=== PATIENT | male | born 1940 | race Caucasian/White ===

== ENCOUNTER → 2017-09-16 | Outpatient (CLI) | payer MEDICARE ==
[~2017-09-16] MED LIST: FLUT16SP NAS
== END | disposition home or self-care (01) ==
LOC: CFH 09:33
PROVIDERS: ATTEND Internal Medicine Critical Care Medicine
DX: R91.1 Solitary pulmonary nodule (principal); J44.9 Chronic obstructive pulmonary disease, unspecified; N28.9 Disorder of kidney and ureter, unspecified
CPT/HCPCS: 71250

== ENCOUNTER 2017-09-27 06:56 | Day surgery (SDC) | payer MEDICARE ==
[~2017-09-27] VITALS: Ht 208.3 cm; Wt 90.6 kg
[2017-09-27] MEDS ORDERED: SODIUM CHLORIDE 0.9% 1,000 ML IV SCH (07:34)
[2017-09-27 07:35] VITALS: BP 144/75
[2017-09-27 07:55] LABS: INTERNATIONAL NORMALIZED RATIO 1.1 (0.93-1.1); PROTHROMBIN TIME 11.4 Seconds (9.6-11.5)
[2017-09-27] MEDS ORDERED: FENTANYL PF 100 MCG/2ML ONE (08:01)
[2017-09-27] MEDS ORDERED: NALOXONE 1 MG/ML, 2ML ONE (08:02)
[2017-09-27] MEDS ORDERED: MIDAZOLAM 1 MG/ML, 2ML ONE (08:02)
[2017-09-27] MEDS ORDERED: FLUMAZENIL 0.1 MG/1 ML, 5ML ONE (08:02)
[2017-09-28] MEDS ORDERED: TRIA1TAB3 PO (09:46)
[2017-09-28] MEDS ORDERED: TIOT4MIS3 IN (09:46)
[2017-09-28] MEDS ORDERED: VIT1TABL47 PO (09:46)
[2017-09-28] MEDS ORDERED: LEVO100T5 PO (09:46)
[2017-09-28] MEDS ORDERED: WARF5TAB PO (09:46)
[2017-09-28] MEDS ORDERED: UMEC1DIS INH (09:46)
[2017-09-28] MEDS ORDERED: PRAV40TA2 PO (09:46)
== END 2017-09-27 12:05 ==
LOC: OUT 06:56
PROVIDERS: ATTEND Internal Medicine Critical Care Medicine
DX: C34.90 Malignant neoplasm of unspecified part of unspecified bronchus or lung (principal); Z79.82 Long term (current) use of aspirin
CPT/HCPCS: 32405; 36415; 71045; 77012; 85610; 88305; 99156; 99157; J2250; J3010; J7030; J2310

== ENCOUNTER 2017-09-28 09:16 | Emergency (ER) | payer MEDICARE ==
[~2017-09-28] VITALS: Ht 182.9 cm; Wt 91.4 kg
[2017-09-28] MEDS ORDERED: UMEC1DIS INH (09:46)
[2017-09-28] MEDS ORDERED: TIOT4MIS3 IN (09:46)
[2017-09-28] MEDS ORDERED: PRAV40TA2 PO (09:46)
[2017-09-28] MEDS ORDERED: LEVO100T5 PO (09:46)
[2017-09-28] MEDS ORDERED: WARF5TAB PO (09:46)
[2017-09-28] MEDS ORDERED: VIT1TABL47 PO (09:46)
[2017-09-28] MEDS ORDERED: TRIA1TAB3 PO (09:46)
[2017-09-28] MEDS ORDERED: LIDOCAINE 1%, 20ML ONE (10:05)
[2017-09-28] MEDS ORDERED: FENTANYL PF 100 MCG/2ML ONE (10:21)
[2017-09-28] MEDS ORDERED: NALOXONE 1 MG/ML, 2ML ONE (10:21)
[2017-09-28 10:30] LABS: BASOPHILS # (AUTO) 0.02 x10^3/uL (0-0.1); BASOPHILS % (AUTO) 0 % (0-1); EOSINOPHILS # (AUTO) 0.16 x10^3/uL (0-0.4); EOSINOPHILS % (AUTO) 2 % (1-7); LYMPHOCYTES # (AUTO) 0.84 x10^3/uL (1-3.4); LYMPHOCYTES % (AUTO) 13 % (22-44); MD NO; MEAN CORPUSCULAR HEMOGLOBIN 33.7 pg (27.5-34.5); MEAN CORPUSCULAR HGB CONC 33.6 g/dL (33.2-36.2); MEAN CORPUSCULAR VOLUME 100.1 fL (81-97); MEAN PLATELET VOLUME 8.1 fL (7.4-10.4); MONOCYTES # (AUTO) 0.49 x10^3/uL (0.2-0.8); MONOCYTES % (AUTO) 7 % (2-9); NEUTROPHILS # (AUTO) 5.11 x10^3/uL (1.8-6.8); NEUTROPHILS % (AUTO) 77 % (42-75); PLATELET COUNT 120 x10^3/uL (130-400); RED BLOOD COUNT 3.55 x10^6/uL (4.38-5.82); RED CELL DISTRIBUTION WIDTH 14.2 % (9.4-14.8)
[2017-09-28 10:41] LABS: ANION GAP 4 mmol/L (5-15); CALCIUM 8.6 mg/dL (8.5-10.1); CHLORIDE 105 mmol/L (98-107); CREATININE 1.22 mg/dL (0.7-1.3)
[2017-09-28] MEDS ORDERED: HYDROmorphone 2 MG/ML, 1ML ONE (12:00)
[2017-09-28] MEDS ORDERED: HYDROmorphone 1 MG/ML, 1ML IV ONE (12:00)
[2017-09-28 13:35] VITALS: BP 114/55
== END 2017-09-28 13:48 | disposition home or self-care (01) ==
LOC: ED 10:17
DX: J95.811 Postprocedural pneumothorax (principal); J43.9 Emphysema, unspecified; Z87.891 Personal history of nicotine dependence; Z98.890 Other specified postprocedural states; Z99.81 Dependence on supplemental oxygen; Z85.51 Personal history of malignant neoplasm of bladder
CPT/HCPCS: 32557; 36415; 71045; 80048; 85025; 93005; 96374; 99156; 99157; 99285; C1729; C1769; J1170; J3010; J3490; 32551; J2310

== ENCOUNTER → 2017-10-01 | Outpatient (CLI) | payer MEDICARE ==
[~2017-10-01] MED LIST changes: +LEVO100T5 PO; +PRAV40TA2 PO; +TIOT4MIS3 IN; +TRIA1TAB3 PO; +UMEC1DIS INH; +VIT1TABL47 PO; +WARF5TAB PO
== END ==
LOC: RAD 13:58
PROVIDERS: ATTEND Radiology Diagnostic Radiology
DX: Z46.82 Encounter for fitting and adjustment of non-vascular catheter (principal); J98.11 Atelectasis; J98.6 Disorders of diaphragm
CPT/HCPCS: 71045

== ENCOUNTER → 2017-10-06 | Outpatient (CLI) | payer MEDICARE ==
[~2017-10-06] MED LIST changes: +GADOBUTROL 7.5 MMOL/7.5 ML VIAL ONE
== END | disposition home or self-care (01) ==
LOC: CFH 13:27
PROVIDERS: ATTEND Internal Medicine Critical Care Medicine
DX: C34.90 Malignant neoplasm of unspecified part of unspecified bronchus or lung (principal)
CPT/HCPCS: 70553; A9585

== ENCOUNTER → 2017-10-10 | Outpatient (CLI) | payer MEDICARE ==
[~2017-10-10] MED LIST changes: -GADOBUTROL 7.5 MMOL/7.5 ML VIAL ONE
== END | disposition home or self-care (01) ==
LOC: ROC 08:40
PROVIDERS: ATTEND Radiology Radiation Oncology
DX: C34.90 Malignant neoplasm of unspecified part of unspecified bronchus or lung (principal)
CPT/HCPCS: G0463

== ENCOUNTER → 2017-10-12 | Outpatient (CLI) | payer MEDICARE | END | disposition home or self-care (01) | LOC: PETCFH 13:27 | PROVIDERS: ATTEND Radiology Radiation Oncology | DX: C34.91 Malignant neoplasm of unspecified part of right bronchus or lung (principal); R91.1 Solitary pulmonary nodule | CPT/HCPCS: 78815; A9552 ==

== ENCOUNTER 2017-10-21 10:06 | Day surgery (SDC) | payer MEDICARE ==
[~2017-10-21] VITALS: Ht 182.9 cm; Wt 90.4 kg
[2017-10-21 10:58] VITALS: BP 164/75
[2017-10-21] MEDS ORDERED: SODIUM CHLORIDE 0.9% 1,000 ML IV SCH (11:01)
[2017-10-21 11:15] LABS: INTERNATIONAL NORMALIZED RATIO 1.16 (0.93-1.1); PROTHROMBIN TIME 11.9 Seconds (9.6-11.5)
[2017-10-21] MEDS ORDERED: MIDAZOLAM 1 MG/ML, 2ML ONE ×2 (11:41)
[2017-10-21] MEDS ORDERED: NALOXONE 1 MG/ML, 2ML ONE (11:42)
[2017-10-21] MEDS ORDERED: FENTANYL PF 100 MCG/2ML ONE (11:42)
[2017-10-21] MEDS ORDERED: FLUMAZENIL 0.1 MG/1 ML, 5ML ONE (11:42)
[2017-10-21] MEDS ORDERED: LIDOCAINE 1%, 20ML ONE (11:59)
== END 2017-10-21 14:35 ==
LOC: OUT 10:06 → EDSTATUS 11:30 → OUT 14:35
PROVIDERS: ATTEND Radiology Radiation Oncology
DX: J98.4 Other disorders of lung (principal); I48.91 Unspecified atrial fibrillation; N40.0 Benign prostatic hyperplasia without lower urinary tract symptoms; J44.9 Chronic obstructive pulmonary disease, unspecified; I10 Essential (primary) hypertension; E03.9 Hypothyroidism, unspecified; E89.0 Postprocedural hypothyroidism; Z86.718 Personal history of other venous thrombosis and embolism; Z40.09 Encounter for prophylactic removal of other organ; Z98.890 Other specified postprocedural states
CPT/HCPCS: 32553; 36415; 71045; 77014; 85610; 99156; 99157; A4648; J2250; J3010; J3490; J7030; J2310

== ENCOUNTER 2017-11-04 06:47 | Day surgery (SDC) | payer MEDICARE ==
[~2017-11-04] VITALS: Ht 182.9 cm; Wt 88.4 kg
[2017-11-04] MEDS ORDERED: CEFAZOLIN PMX 1GM/50ML 50 ML ONE (07:32)
[2017-11-04 08:03] VITALS: BP 131/78
[2017-11-04 08:11] LABS: INTERNATIONAL NORMALIZED RATIO 1.09 (0.93-1.1); PROTHROMBIN TIME 11.3 Seconds (9.6-11.5)
[2017-11-04] MEDS ORDERED: FENTANYL PF 100 MCG/2ML ONE ×2 (08:26)
[2017-11-04] MEDS ORDERED: LIDOCAINE 1%, 20ML ONE (08:26)
[2017-11-04] MEDS ORDERED: MIDAZOLAM 1 MG/ML, 5ML ONE (08:26)
[2017-11-04] MEDS ORDERED: NALOXONE 1 MG/ML, 2ML ONE (08:27)
[2017-11-04] MEDS ORDERED: FLUMAZENIL 0.1 MG/1 ML, 5ML ONE (08:27)
[2017-11-04] MEDS ORDERED: CEFAZOLIN PMX 1GM/50ML 50 ML IV ONE (09:00)
== END 2017-11-04 11:20 ==
LOC: OUT 06:47
PROVIDERS: ATTEND Internal Medicine Hematology & Oncology
DX: Z45.2 Encounter for adjustment and management of vascular access device (principal); C34.90 Malignant neoplasm of unspecified part of unspecified bronchus or lung; I48.91 Unspecified atrial fibrillation; N40.0 Benign prostatic hyperplasia without lower urinary tract symptoms; J44.9 Chronic obstructive pulmonary disease, unspecified; I10 Essential (primary) hypertension; E03.9 Hypothyroidism, unspecified; E78.5 Hyperlipidemia, unspecified; E89.0 Postprocedural hypothyroidism; Z98.890 Other specified postprocedural states
CPT/HCPCS: 36415; 36561; 76937; 77001; 85610; 99156; 99157; C1788; J1642; J2250; J3010; J3490; J2310

== ENCOUNTER → 2018-02-20 | Outpatient (CLI) | payer MEDICARE | END | disposition home or self-care (01) | LOC: ROC 08:29 | PROVIDERS: ATTEND Radiology Radiation Oncology | DX: Z08 Encounter for follow-up examination after completed treatment for malignant neoplasm (principal); C34.11 Malignant neoplasm of upper lobe, right bronchus or lung; R91.1 Solitary pulmonary nodule | CPT/HCPCS: G0463 ==

== ENCOUNTER → 2018-04-18 | Outpatient (CLI) | payer MEDICARE | END | disposition home or self-care (01) | LOC: RAD 09:11 | PROVIDERS: ATTEND Internal Medicine Hematology & Oncology | DX: Z02.9 Encounter for administrative examinations, unspecified (principal) ==

== ENCOUNTER → 2018-06-05 | Outpatient (CLI) | payer MEDICARE | END | disposition home or self-care (01) | LOC: ROC 09:17 | PROVIDERS: ATTEND Radiology Radiation Oncology | DX: C34.11 Malignant neoplasm of upper lobe, right bronchus or lung (principal); R91.1 Solitary pulmonary nodule | CPT/HCPCS: G0463 ==

== ENCOUNTER 2018-06-08 05:50 | Day surgery (SDC) | payer MEDICARE ==
[~2018-06-08] VITALS: Ht 182.9 cm; Wt 88.6 kg
[2018-06-08] MEDS ORDERED: LIDOCAINE-MPF 2% ,5ML ONE (07:07)
[2018-06-08 07:09] VITALS: BP 137/80
[2018-06-08 07:28] LABS: INTERNATIONAL NORMALIZED RATIO 1.13 (0.93-1.1); PROTHROMBIN TIME 11.6 Seconds (9.6-11.5)
[2018-06-08] MEDS ORDERED: NALOXONE 1 MG/ML, 2ML ONE (07:39)
[2018-06-08] MEDS ORDERED: FLUMAZENIL 0.1 MG/1 ML, 5ML ONE (07:39)
[2018-06-08] MEDS ORDERED: FENTANYL PF 100 MCG/2ML ONE (07:39)
[2018-06-08] MEDS ORDERED: MIDAZOLAM 1 MG/ML, 5ML ONE (07:39)
== END 2018-06-08 10:05 | disposition home or self-care (01) ==
LOC: OUT 05:50
PROVIDERS: ATTEND Internal Medicine Hematology & Oncology
DX: Z45.2 Encounter for adjustment and management of vascular access device (principal); C34.11 Malignant neoplasm of upper lobe, right bronchus or lung; J44.9 Chronic obstructive pulmonary disease, unspecified; I10 Essential (primary) hypertension; D70.1 Agranulocytosis secondary to cancer chemotherapy; D64.9 Anemia, unspecified; I48.91 Unspecified atrial fibrillation; N40.0 Benign prostatic hyperplasia without lower urinary tract symptoms; E03.9 Hypothyroidism, unspecified; E78.5 Hyperlipidemia, unspecified; Z72.89 Other problems related to lifestyle; Z79.01 Long term (current) use of anticoagulants; Z90.5 Acquired absence of kidney; Z86.718 Personal history of other venous thrombosis and embolism; Z98.890 Other specified postprocedural states; Z87.891 Personal history of nicotine dependence
CPT/HCPCS: 36415; 36590; 77001; 85610; 99156; 99157; J2250; J3010; J3490; J2310

== ENCOUNTER → 2018-12-25 | Outpatient (CLI) | payer MEDICARE | END | disposition home or self-care (01) | LOC: ROC 09:26 | PROVIDERS: ATTEND Radiology Radiation Oncology | DX: C34.11 Malignant neoplasm of upper lobe, right bronchus or lung (principal); G62.9 Polyneuropathy, unspecified; R91.1 Solitary pulmonary nodule; J98.11 Atelectasis; Z79.899 Other long term (current) drug therapy; Z92.21 Personal history of antineoplastic chemotherapy | CPT/HCPCS: G0463 ==

== ENCOUNTER 2019-06-25 08:08 | Outpatient (CLI) | payer MEDICARE ==
[~2019-06-25 08:08] MED LIST changes: -FLUT16SP NAS; +FLUT16SP24 NAS
== END 2019-06-25 23:59 | disposition home or self-care (01) ==
LOC: ROC 08:08
PROVIDERS: ATTEND Radiology Radiation Oncology
DX: Z08 Encounter for follow-up examination after completed treatment for malignant neoplasm (principal); Z85.118 Personal history of other malignant neoplasm of bronchus and lung
CPT/HCPCS: G0463

== ENCOUNTER → 2020-01-08 | Outpatient (CLI) | payer MEDICARE ==
[~2020-01-08] MED LIST changes: +OMNIPAQUE 350 MG/ML, 100ML BOTTLE ONE
[2020-01-08 16:03] LABS: ALANINE AMINOTRANSFERASE 18 U/L (12-78); ALBUMIN 3.7 g/dL (3.4-5.0); ANION GAP 4 mmol/L (5-15); CALCIUM 8.5 mg/dL (8.5-10.1); CHLORIDE 105 mmol/L (98-107); CREATININE 1.21 mg/dL (0.7-1.3)
[2020-01-08 16:05] LABS: ALKALINE PHOSPHATASE 64 U/L (45-117); BILIRUBIN,TOTAL 0.4 mg/dL (0.2-1.0); TOTAL PROTEIN 7.1 g/dL (6.4-8.2)
== END | disposition home or self-care (01) ==
LOC: CFH 12:03
PROVIDERS: ATTEND Internal Medicine Hematology & Oncology
DX: Z51.11 Encounter for antineoplastic chemotherapy (principal); C34.11 Malignant neoplasm of upper lobe, right bronchus or lung; D70.1 Agranulocytosis secondary to cancer chemotherapy; D69.6 Thrombocytopenia, unspecified; D64.81 Anemia due to antineoplastic chemotherapy; J98.4 Other disorders of lung; J44.9 Chronic obstructive pulmonary disease, unspecified; N28.1 Cyst of kidney, acquired; N28.9 Disorder of kidney and ureter, unspecified; I71.4 Abdominal aortic aneurysm, without rupture
CPT/HCPCS: 36415; 71260; 74160; 80053; 82565; Q9967

== ENCOUNTER → 2020-07-28 | Outpatient (CLI) | payer MEDICARE ==
[~2020-07-28] MED LIST changes: -WARF5TAB PO; +WARF5TAB2 PO
== END | disposition home or self-care (01) ==
LOC: CFH 12:18
PROVIDERS: ATTEND Internal Medicine Hematology & Oncology
DX: C34.11 Malignant neoplasm of upper lobe, right bronchus or lung (principal); J43.9 Emphysema, unspecified; I25.10 Atherosclerotic heart disease of native coronary artery without angina pectoris; N28.1 Cyst of kidney, acquired; I71.4 Abdominal aortic aneurysm, without rupture
CPT/HCPCS: 71260; 74177; Q9967

== ENCOUNTER → 2021-01-28 | Outpatient (CLI) | payer MEDICARE | END | disposition home or self-care (01) | LOC: CFH 14:04 | PROVIDERS: ATTEND Internal Medicine Hematology & Oncology | DX: C34.11 Malignant neoplasm of upper lobe, right bronchus or lung (principal); R91.1 Solitary pulmonary nodule; J43.9 Emphysema, unspecified; I71.4 Abdominal aortic aneurysm, without rupture; N28.1 Cyst of kidney, acquired | CPT/HCPCS: 71260; 74177; Q9967 ==